=== PATIENT | female | born 1965 | race Caucasian/White ===

== ENCOUNTER 2017-06-04 06:01 | Day surgery (SDC) | payer OTHER ==
[2017-06-04] MEDS ORDERED: LR 1,000 ML IV ONE (06:07)
[2017-06-04] MEDS ORDERED: LIDOCAINE 1% 2 ML INJ ID PRN (06:07)
--- NOTE | 2017-06-04 07:12 | PDANEPAE ---
ANE History of Present Illness here for colonoscopy ANE Past Medical History - Cardiovascular History Hx Hypertension: Yes Hx Arrhythmias: No Hx Chest Pain: No Hx Coronary Artery / Peripheral Vascular Disease: No Hx CHF / Valvular Disease: No Hx Palpitations: No - Pulmonary History Hx COPD: No Hx Asthma/Reactive Airway Disease: No Hx Recent Upper Respiratory Infection: No Hx Oxygen in Use at Home: No Hx Sleep Apnea: No Sleep Apnea Screening Result - Last Documented: Negative - Neurologic History Hx Cerebrovascular Accident: No Hx Seizures: No Hx Dementia: No - Endocrine History Hx Diabetes: No Endocrine History Comment: - no Rx now - Renal History Hx Renal Disorders: No - Liver History Hx Hepatic Disorders: No - Neurological & Psychiatric Hx Hx Neurological and Psychiatric Disorders: No - Cancer History Hx Cancer: No - Congenital Disorder History Hx Congenital Disorders: No - GI History Hx Gastrointestinal Disorders: Yes Gastrointestinal History Comment: screening colonoscopy, appendicitis Jan- drain placed and Antibx in hospital. - Other Health History Other Health History: none - Chronic Pain History Chronic Pain: No - Surgical History Prior Surgeries: appy-(small tumor inside) 05-02. ectopic 1992 ANE Review of Systems Review of systems is: negative Review of Systems: - Exercise capacity Exercise capacity: >=4 METS METS (RN): 4 METS ANE Patient History - Allergies Allergies/Adverse Reactions: amoxicillin [Amoxicillin] Allergy (Mild, Verified 06/02/17 15:05) Diarrhea - Home Medications Home medications: home medication list seen and reviewed Home Medications: Aspirin 81mg (*) 06/02/17 [Last Taken 05/31/17] Echinacea 06/02/17 [Last Taken 05/31/17] Lisinopril 06/02/17 [Last Taken 06/03/17] Vitamin D3 06/02/17 [Last Taken 06/03/17] - NPO status NPO Status: no food or drink >8 hours NPO Since - Liquids (Date): 06/03/17 NPO Since - Liquids (Time): 23:30 NPO Since - Solids (Date): 06/03/17 NPO Since - Solids (Time): 14:30 - Anes Hx Anes Hx: no prior problems - Smoking Hx Smoking Status: Never smoked ANE Labs/Vital Signs - Vital Signs Blood Pressure: 140/81 Heart Rate: 82 Respiratory Rate: 18 O2 Sat (%): 91 Height: 160.02 cm Weight: 90.718 kg ANE Physical Exam - Airway Neck exam: FROM Mallampati Score: Class 1 - Pulmonary Pulmonary: no respiratory distress - Cardiovascular Cardiovascular: regular rate and rhythym - ASA Status ASA Status: II ANE Anesthesia Plan Anesthesia Plan: GA with mask
[2017-06-04] MEDS ORDERED: PROPOFOL/EMULSION 500 MG/50 ML BOTTLE IV ONE (07:39)
--- NOTE | 2017-06-04 07:44 | PDHPUP ---
History & Physical Update H&P update statement: This history and physical update is based on an assessment of the patient which was completed after admission or registration (within 24 hours), but prior to the surgery/procedure.
[2017-06-04] MEDS ORDERED: fentaNYL 100 MCG/2 ML INJ IVP PRN (07:57)
[2017-06-04] MEDS ORDERED: NALOXONE HCL 0.4 MG/ML INJ IVP PRN (07:57)
[2017-06-04] MEDS ORDERED: ALBUTEROL 3 ML DEYVIAL IH PRN (07:57)
[2017-06-04] MEDS ORDERED: ONDANSETRON 4 MG/2 ML VIAL IVP PRN (07:57)
--- NOTE | 2017-06-04 08:03 | POSTOPPROG ---
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
[2017-06-04 08:32] VITALS: TEMP 97.5
[2017-06-04 09:19] VITALS: BP 153/92; PULSE 76; RESP 16; O2SAT 96
--- NOTE | 2017-06-04 09:34 | GOP ---
[f rep st] OPERATIVE REPORT DATE OF OPERATION: SURGEON: Girish Jensen MD WELDER FITTER: None. ANESTHESIA: Monitored anesthesia care. ANESTHESIOLOGIST: Dr. 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 PROCEDURE PERFORMED: Colonoscopy to the terminal ileum. FINDINGS: Normal colonoscopy. SPECIMENS: None. DESCRIPTION OF PROCEDURE: Patient was brought into the GI suite. After induction of IV sedation, e was placed in a left lateral decubitus position. Time-out procedure was then performed according t o institutional standards. The patient had digital rectal exam performed, and no additional masses w ere noted. Normal rectal tone. The endoscope was advanced through the colon to the terminal ileum w ithout difficulty. The terminal ileum and base of the appendix appeared normal, as did the ileocecal valve. There were no defects or lesions noted in the colon throughout. Circumferential inspection of greater than 95% of the colonic mucosa was performed. A small amount of succus found on the right side of the colon was irrigated and aspirated, with easy visualization of the mucosa in that area. The endoscope was advanced over 10 minutes, and excess air was removed on withdrawal of the scope. T he patient tolerated the procedure well. She was taken to the recovery room. Hospice Massage Therapist picture s were taken and given to the patient's family for their records. COMPLICATIONS: None. /[id number]/MODL
== END 2017-06-04 09:15 | disposition home or self-care (01) ==
LOC: FSGY 06:01
PROVIDERS: ATTEND Surgery
PROC: 0DJD8ZZ Inspection of Lower Intestinal Tract, Via Natural or Artificial Opening Endoscopic (ICD-10-PCS; principal; 2017-06-04 07:30)
DX: Z12.11 Encounter for screening for malignant neoplasm of colon (principal); C7A.020 Malignant carcinoid tumor of the appendix; E03.9 Hypothyroidism, unspecified; I10 Essential (primary) hypertension
CPT/HCPCS: J2704